=== PATIENT | male | born 1945 | race Caucasian/White ===

== ENCOUNTER 2018-01-07 15:17 | Inpatient (IN) ==
[2018-01-08 15:42] VITALS: BP 116/91
== END 2018-01-08 17:30 | disposition home or self-care (01) | DRG 312 ==
LOC: N.ED 15:17 → N.EDINP 16:55 → N.TELEN 17:29
PROVIDERS: ADMIT Family Medicine; ATTEND Family Medicine

== ENCOUNTER 2019-08-06 20:42 | Inpatient (IN) ==
[2019-08-06] MEDS ORDERED: PANTOPRAZOLE 40 MG VIAL IV STA (21:02)
[2019-08-06] MEDS ORDERED: SODIUM CHLORIDE 0.9% 500 ML IV STA (21:02)
[2019-08-06] MEDS ORDERED: ONDANSETRON 4 MG/2 ML VIAL IV STA (21:02)
[2019-08-06 21:43] LABS: Basophils % 0.1 % (0.0-0.8); Eosinophils # 0.1 10*3/uL (0.0-0.87); Eosinophils % 1.5 % (0.00-10.9); Hematocrit 31.4 VOL% (42.0-52.0); Hemoglobin 10.4 GM/DL (14.0-18.0); Immature Granulocytes % 0.5 %; Immature Granulocytes Absolute 0.04 #; Lymphocytes # 1.6 10*3/uL (1.4-4.0); Lymphocytes % 20.2 % (21.2-54.2); Mean Corpuscular HGB Conc 33.1 GM/DL (32-36); Mean Corpuscular Volume 87.7 FL (87-102); Mean Platelet Volume 9.1 FL (9.6-12.0); Neutrophils % 66.7 % (38.7-73.9); Platelet Count 164 T/CUMM (130-400); Red Blood Count 3.58 MC/CUMM (3.8-5.5); Red Cell Distribution Width 12.7 % (9.3-17.3); White Blood Count 7.9 T/CUMM (4-12)
[2019-08-06 21:55] LABS: INR 1.1; PT Patient Result 11.8 SECS (9.6-12.2)
[2019-08-06 21:59] LABS: Albumin 2.7 G/DL (3.4-5.0); Bilirubin,Total 0.6 MG/DL (0.2-1.0); Calcium 8.1 MG/DL (8.5-10.1); Osmolality,Calculated 290.4 MOS/KG (273-304); Total Protein 5.5 G/DL (6.4-8.3)
[2019-08-06] MEDS ORDERED: ACETAMINOPHEN 325 MG TABLET PO PRN (22:42)
[2019-08-06] MEDS ORDERED: ONDANSETRON 4 MG/2 ML VIAL IV PRN (22:42)
[2019-08-06] MEDS: SODIUM CHLORIDE 0.9% 1,000 ML IV SCH (22:45)
[2019-08-06 23:22] LABS: Basophils % 0.1 % (0.0-0.8); Eosinophils # 0.1 10*3/uL (0.0-0.87); Eosinophils % 0.9 % (0.00-10.9); Hematocrit 31.2 VOL% (42.0-52.0); Hemoglobin 10.2 GM/DL (14.0-18.0); Immature Granulocytes % 0.4 %; Immature Granulocytes Absolute 0.03 #; Lymphocytes # 1.5 10*3/uL (1.4-4.0); Lymphocytes % 18.6 % (21.2-54.2); Mean Corpuscular HGB Conc 32.7 GM/DL (32-36); Mean Corpuscular Volume 87.6 FL (87-102); Mean Platelet Volume 9.1 FL (9.6-12.0); Monocytes % 7.8 % (1.7-12.7); Neutrophils % 72.2 % (38.7-73.9); Platelet Count 159 T/CUMM (130-400); Red Blood Count 3.56 MC/CUMM (3.8-5.5); Red Cell Distribution Width 12.8 % (9.3-17.3); White Blood Count 7.8 T/CUMM (4-12)
[2019-08-07 06:55] LABS: Albumin 2.8 G/DL (3.4-5.0); Bilirubin,Total 0.6 MG/DL (0.2-1.0); Calcium 8.4 MG/DL (8.5-10.1); Risk Ratio 2.4; Total Protein 5.8 G/DL (6.4-8.3); VLDL CHOLESTEROL 30.2 MG/DL
[2019-08-07] MEDS: SODIUM CHLORIDE 0.9% 1,000 ML IV SCH ×3 (07:53→23:00)
[2019-08-07 07:54] LABS: Hematocrit 30.8 VOL% (42.0-52.0); Hemoglobin 10.1 GM/DL (14.0-18.0)
[2019-08-07 08:02] LABS: PT Patient Result 11.3 SECS (9.6-12.2); Partial Thromboplastin Time 23.8 SECS (20.8-36.0)
[2019-08-07] MEDS: valACYclovir 500 MG TABLET PO SCH (08:12)
[2019-08-07] MEDS: FLECAINIDE 50 MG TABLET PO SCH (08:12)
[2019-08-07] MEDS: DOCUSATE SODIUM 100 MG CAPSULE PO SCH ×2 (08:12→20:17)
[2019-08-07] MEDS: FOLIC ACID 1 MG TABLET PO SCH (08:12)
[2019-08-07 08:13] LABS: Troponin I < 0.015 NG/ML (0.00-0.045)
[2019-08-07] MEDS: PANTOPRAZOLE 40 MG VIAL IV SCH ×2 (08:13→20:17)
[2019-08-07] MEDS ORDERED: PANTOPRAZOLE 40 MG VIAL IV SCH (09:00)
[2019-08-07 11:25] LABS: Troponin I < 0.015 NG/ML (0.00-0.045)
[2019-08-07] MEDS: ASPIRIN EC 81 MG TABLET PO SCH (12:36)
[2019-08-07] MEDS: ENOXAPARIN 40 MG/0.4 ML SYRINGE SUBCUT SCH (12:36)
[2019-08-07 13:24] LABS: Hematocrit 30.2 VOL% (42.0-52.0); Hemoglobin 9.8 GM/DL (14.0-18.0)
[2019-08-07 13:52] LABS: Troponin I < 0.015 NG/ML (0.00-0.045)
[2019-08-07] MEDS: ROSUVASTATIN 20 MG TABLET PO SCH (19:22)
[2019-08-07] MEDS: CHOLECALCIFEROL 1,000 UNIT TABLET PO SCH (19:22)
[2019-08-07 20:05] LABS: Hematocrit 28.1 VOL% (42.0-52.0); Hemoglobin 9.2 GM/DL (14.0-18.0)
[2019-08-08] MEDS: SODIUM CHLORIDE 0.9% 1,000 ML IV SCH ×4 (00:06→17:05)
[2019-08-08 01:27] LABS: Hematocrit 27.4 VOL% (42.0-52.0); Hemoglobin 8.7 GM/DL (14.0-18.0)
[2019-08-08] MEDS: FOLIC ACID 1 MG TABLET PO SCH (08:58)
[2019-08-08] MEDS: DOCUSATE SODIUM 100 MG CAPSULE PO SCH ×2 (08:58→21:51)
[2019-08-08] MEDS: ASPIRIN EC 81 MG TABLET PO SCH (08:58)
[2019-08-08] MEDS: valACYclovir 500 MG TABLET PO SCH (08:58)
[2019-08-08] MEDS: FLECAINIDE 50 MG TABLET PO SCH (08:58)
[2019-08-08] MEDS: PANTOPRAZOLE 40 MG VIAL IV SCH ×2 (08:59→21:51)
[2019-08-08] MEDS: ENOXAPARIN 40 MG/0.4 ML SYRINGE SUBCUT SCH (09:00)
[2019-08-08] MEDS: ROSUVASTATIN 20 MG TABLET PO SCH (20:16)
[2019-08-08] MEDS: CHOLECALCIFEROL 1,000 UNIT TABLET PO SCH (20:16)
[2019-08-08] MEDS: MORPHINE 4 MG/1 ML VIAL IV PRN (21:59)
[2019-08-09] MEDS: SODIUM CHLORIDE 0.9% 1,000 ML IV SCH ×3 (02:35→21:38)
[2019-08-09 06:20] LABS: Basophils % 0.2 % (0.0-0.8); Eosinophils # 0.2 10*3/uL (0.0-0.87); Eosinophils % 4.8 % (0.00-10.9); Hematocrit 26.7 VOL% (42.0-52.0); Hemoglobin 8.7 GM/DL (14.0-18.0); Immature Granulocytes % 0.4 %; Immature Granulocytes Absolute 0.02 #; Lymphocytes # 1.2 10*3/uL (1.4-4.0); Lymphocytes % 25.4 % (21.2-54.2); Mean Corpuscular HGB Conc 32.6 GM/DL (32-36); Mean Corpuscular Volume 89.3 FL (87-102); Mean Platelet Volume 8.8 FL (9.6-12.0); Monocytes % 10.1 % (1.7-12.7); Neutrophils % 59.1 % (38.7-73.9); Platelet Count 142 T/CUMM (130-400); Red Blood Count 2.99 MC/CUMM (3.8-5.5); White Blood Count 4.8 T/CUMM (4-12)
[2019-08-09 06:57] LABS: Osmolality,Calculated 285.8 MOS/KG (273-304)
[2019-08-09] MEDS: ENOXAPARIN 40 MG/0.4 ML SYRINGE SUBCUT SCH (08:50)
[2019-08-09] MEDS: PANTOPRAZOLE 40 MG VIAL IV SCH ×2 (08:50→21:02)
[2019-08-09] MEDS: DOCUSATE SODIUM 100 MG CAPSULE PO SCH ×2 (08:52→21:02)
[2019-08-09] MEDS: ASPIRIN EC 81 MG TABLET PO SCH (08:52)
[2019-08-09] MEDS: POTASSIUM CHLORIDE 20 MEQ TABLET PO PRN ×3 (08:52→13:55)
[2019-08-09] MEDS: FOLIC ACID 1 MG TABLET PO SCH (08:53)
[2019-08-09] MEDS: valACYclovir 500 MG TABLET PO SCH (08:53)
[2019-08-09] MEDS: VALSARTAN/HCTZ 160-12.5 MG TABLET PO SCH (08:53)
[2019-08-09] MEDS: FLECAINIDE 50 MG TABLET PO SCH (09:02)
[2019-08-09] MEDS: ROSUVASTATIN 20 MG TABLET PO SCH (21:01)
[2019-08-09] MEDS: CHOLECALCIFEROL 1,000 UNIT TABLET PO SCH (21:02)
[2019-08-09] MEDS: MORPHINE 4 MG/1 ML VIAL IV PRN (21:02)
[2019-08-10 05:36] LABS: Basophils % 0.2 % (0.0-0.8); Eosinophils # 0.2 10*3/uL (0.0-0.87); Eosinophils % 5.5 % (0.00-10.9); Hematocrit 27.9 VOL% (42.0-52.0); Hemoglobin 9.1 GM/DL (14.0-18.0); Immature Granulocytes % 0.5 %; Immature Granulocytes Absolute 0.02 #; Lymphocytes # 1.4 10*3/uL (1.4-4.0); Lymphocytes % 31.3 % (21.2-54.2); Mean Corpuscular HGB Conc 32.6 GM/DL (32-36); Mean Corpuscular Volume 89.1 FL (87-102); Mean Platelet Volume 9.4 FL (9.6-12.0); Monocytes % 10.1 % (1.7-12.7); Neutrophils % 52.4 % (38.7-73.9); Platelet Count 171 T/CUMM (130-400); Red Blood Count 3.13 MC/CUMM (3.8-5.5); Red Cell Distribution Width 13.5 % (9.3-17.3); White Blood Count 4.4 T/CUMM (4-12)
[2019-08-10 05:52] LABS: Calcium 8.3 MG/DL (8.5-10.1); Osmolality,Calculated 284.8 MOS/KG (273-304)
[2019-08-10] MEDS: FLECAINIDE 50 MG TABLET PO SCH (10:17)
[2019-08-10] MEDS: DOCUSATE SODIUM 100 MG CAPSULE PO SCH ×2 (10:17→20:32)
[2019-08-10] MEDS: FOLIC ACID 1 MG TABLET PO SCH (10:17)
[2019-08-10] MEDS: valACYclovir 500 MG TABLET PO SCH (10:17)
[2019-08-10] MEDS: VALSARTAN/HCTZ 160-12.5 MG TABLET PO SCH (10:17)
[2019-08-10] MEDS: ASPIRIN EC 81 MG TABLET PO SCH (10:17)
[2019-08-10] MEDS: PANTOPRAZOLE 40 MG VIAL IV SCH ×2 (10:17→20:30)
[2019-08-10] MEDS: SODIUM CHLORIDE 0.9% 1,000 ML IV SCH ×2 (10:18→23:54)
[2019-08-10] MEDS: ENOXAPARIN 40 MG/0.4 ML SYRINGE SUBCUT SCH (10:18)
[2019-08-10] MEDS: POTASSIUM CHLORIDE 20 MEQ TABLET PO PRN ×2 (13:26→16:13)
[2019-08-10] MEDS: CHOLECALCIFEROL 1,000 UNIT TABLET PO SCH (18:28)
[2019-08-10] MEDS: ROSUVASTATIN 20 MG TABLET PO SCH (18:28)
[2019-08-11 05:41] LABS: Calcium 8.4 MG/DL (8.5-10.1)
[2019-08-11 08:38] LABS: Basophils % 0.4 % (0.0-0.8); Eosinophils # 0.3 10*3/uL (0.0-0.87); Hematocrit 29.5 VOL% (42.0-52.0); Hemoglobin 9.6 GM/DL (14.0-18.0); Immature Granulocytes % 0.6 %; Immature Granulocytes Absolute 0.03 #; Lymphocytes # 1.6 10*3/uL (1.4-4.0); Lymphocytes % 29.5 % (21.2-54.2); Mean Corpuscular HGB Conc 32.5 GM/DL (32-36); Mean Corpuscular Volume 89.7 FL (87-102); Mean Platelet Volume 8.7 FL (9.6-12.0); Monocytes % 10.5 % (1.7-12.7); Platelet Count 159 T/CUMM (130-400); Red Blood Count 3.29 MC/CUMM (3.8-5.5); Red Cell Distribution Width 13.9 % (9.3-17.3); White Blood Count 5.5 T/CUMM (4-12)
[2019-08-11] MEDS ORDERED: LIDOCAINE 2% 5 ML VIAL ONE (09:00)
[2019-08-11] MEDS ORDERED: LACTATED RINGERS 1,000 ML IV SCH (09:00)
[2019-08-11] MEDS ORDERED: propofoL 200 MG/20 ML VIAL IV ONE (09:00)
[2019-08-11] MEDS: PANTOPRAZOLE 40 MG VIAL IV SCH (10:01)
[2019-08-11] MEDS: FLECAINIDE 50 MG TABLET PO SCH (14:01)
[2019-08-11] MEDS: valACYclovir 500 MG TABLET PO SCH (14:01)
[2019-08-11] MEDS: DOCUSATE SODIUM 100 MG CAPSULE PO SCH (14:02)
[2019-08-11] MEDS: VALSARTAN/HCTZ 160-12.5 MG TABLET PO SCH (14:02)
[2019-08-11] MEDS: FOLIC ACID 1 MG TABLET PO SCH (14:02)
[2019-08-11] MEDS: ASPIRIN EC 81 MG TABLET PO SCH (14:02)
[2019-08-11 14:23] VITALS: BP 133/79
[2019-08-11] MEDS: SODIUM CHLORIDE 0.9% 1,000 ML IV SCH (16:12)
== END 2019-08-11 15:45 | disposition home or self-care (01) | DRG 378 ==
LOC: EDUNIT# → N.ED 20:42 → N.EDINP 22:10 → N.ICU 22:47 → N.TELEN 08-08 13:26
PROVIDERS: ADMIT Family Medicine; ATTEND Family Medicine

== ENCOUNTER 2020-03-12 11:36 | Inpatient (IN) ==
[2020-03-12 12:24] LABS: Basophils % 0.4 % (0.0-0.8); Eosinophils % 0.4 % (0.00-10.9); Hematocrit 40.6 VOL% (42.0-52.0); Hemoglobin 13.6 GM/DL (14.0-18.0); Immature Granulocytes % 4.5 %; Immature Granulocytes Absolute 0.44 #; Lymphocytes # 1.2 10*3/uL (1.4-4.0); Lymphocytes % 12.4 % (21.2-54.2); Mean Corpuscular HGB Conc 33.5 GM/DL (32-36); Mean Corpuscular Volume 90.4 FL (87-102); Mean Platelet Volume 9.1 FL (9.6-12.0); Neutrophils % 75.3 % (38.7-73.9); Platelet Count 119 T/CUMM (130-400); Red Blood Count 4.49 MC/CUMM (3.8-5.5); Red Cell Distribution Width 15.1 % (9.3-17.3); White Blood Count 9.7 T/CUMM (4-12)
[2020-03-12 12:37] LABS: Albumin 2.7 G/DL (3.4-5.0); Bilirubin,Total 0.4 MG/DL (0.2-1.0); Calcium 8.9 MG/DL (8.5-10.1); Osmolality,Calculated 282.7 MOS/KG (273-304); PT Patient Result 10.4 SECS (9.8-11.9); Partial Thromboplastin Time 23.7 SECS (23.9-33.8); Total Protein 6.1 G/DL (6.4-8.3)
[2020-03-12 12:44] LABS: Platelet Estimate Adequate
[2020-03-12 12:45] LABS: Anisocytosis 1+
[2020-03-12] MEDS ORDERED: ONDANSETRON 4 MG/2 ML VIAL IV PRN (14:16)
[2020-03-12] MEDS ORDERED: ACETAMINOPHEN 325 MG TABLET PO PRN (14:16)
[2020-03-12] MEDS: SODIUM CHLORIDE 0.45% 1,000 ML IV SCH ×2 (14:40→21:43)
[2020-03-12] MEDS: TAMSULOSIN 0.4 MG CAPSULE PO SCH (17:27)
[2020-03-12] MEDS: APIXABAN 5 MG TABLET PO SCH (21:44)
[2020-03-12] MEDS: ROSUVASTATIN 20 MG TABLET PO SCH (21:44)
[2020-03-12] MEDS: FLECAINIDE 50 MG TABLET PO SCH (21:44)
[2020-03-12] MEDS: levETIRAcetam 500 MG TABLET PO SCH (21:44)
[2020-03-12] MEDS: cefTRIAXone 1,000 MG in SYRINGE 1 EACH IV SCH (21:44)
[2020-03-12] MEDS: valACYclovir 500 MG TABLET PO SCH (21:44)
[2020-03-13 05:23] LABS: Basophils % 0.2 % (0.0-0.8); Eosinophils # 0.1 10*3/uL (0.0-0.87); Eosinophils % 0.7 % (0.00-10.9); Hematocrit 40.1 VOL% (42.0-52.0); Hemoglobin 13.4 GM/DL (14.0-18.0); Immature Granulocytes % 2.4 %; Immature Granulocytes Absolute 0.24 #; Mean Corpuscular HGB Conc 33.4 GM/DL (32-36); Mean Corpuscular Volume 88.9 FL (87-102); Mean Platelet Volume 9.1 FL (9.6-12.0); Neutrophils % 66.7 % (38.7-73.9); Platelet Count 95 T/CUMM (130-400); Red Blood Count 4.51 MC/CUMM (3.8-5.5); Red Cell Distribution Width 15.1 % (9.3-17.3)
[2020-03-13 06:23] LABS: Microcytosis Slight
[2020-03-13 06:24] LABS: Platelet Estimate Adequate
[2020-03-13] MEDS: SODIUM CHLORIDE 0.45% 1,000 ML IV SCH ×2 (06:31→13:54)
[2020-03-13] MEDS: CHOLECALCIFEROL 1,000 UNIT TABLET PO SCH (09:48)
[2020-03-13] MEDS: FLECAINIDE 50 MG TABLET PO SCH ×2 (09:49→20:19)
[2020-03-13] MEDS: DEXAMETHASONE 4 MG TABLET PO SCH (09:49)
[2020-03-13] MEDS: levETIRAcetam 500 MG TABLET PO SCH ×2 (09:50→20:19)
[2020-03-13] MEDS: FOLIC ACID 1 MG TABLET PO SCH (09:50)
[2020-03-13] MEDS: APIXABAN 5 MG TABLET PO SCH ×2 (09:50→20:19)
[2020-03-13] MEDS: ASPIRIN EC 81 MG TABLET PO SCH (09:50)
[2020-03-13] MEDS: valACYclovir 500 MG TABLET PO SCH ×2 (09:50→20:18)
[2020-03-13] MEDS: PANTOPRAZOLE 40 MG TABLET PO SCH (09:50)
[2020-03-13] MEDS: TAMSULOSIN 0.4 MG CAPSULE PO SCH (16:14)
[2020-03-13] MEDS: cefTRIAXone 1,000 MG in SYRINGE 1 EACH IV SCH (20:16)
[2020-03-13] MEDS: ROSUVASTATIN 20 MG TABLET PO SCH (20:20)
[2020-03-14] MEDS: levETIRAcetam 500 MG TABLET PO SCH ×2 (10:23→21:28)
[2020-03-14] MEDS: APIXABAN 5 MG TABLET PO SCH ×2 (10:23→21:28)
[2020-03-14] MEDS: valACYclovir 500 MG TABLET PO SCH ×2 (10:23→21:28)
[2020-03-14] MEDS: ASPIRIN EC 81 MG TABLET PO SCH (10:23)
[2020-03-14] MEDS: CHOLECALCIFEROL 1,000 UNIT TABLET PO SCH (10:23)
[2020-03-14] MEDS: FLECAINIDE 50 MG TABLET PO SCH (10:24)
[2020-03-14] MEDS: PANTOPRAZOLE 40 MG TABLET PO SCH (10:24)
[2020-03-14] MEDS: FOLIC ACID 1 MG TABLET PO SCH (10:24)
[2020-03-14] MEDS: DEXAMETHASONE 4 MG TABLET PO SCH (10:24)
[2020-03-14] MEDS: TAMSULOSIN 0.4 MG CAPSULE PO SCH (16:58)
[2020-03-14] MEDS: cefTRIAXone 1,000 MG in SYRINGE 1 EACH IV SCH (21:27)
[2020-03-14] MEDS: ROSUVASTATIN 20 MG TABLET PO SCH (21:28)
[2020-03-15] MEDS: FLECAINIDE 50 MG TABLET PO SCH ×2 (00:30→08:07)
[2020-03-15 05:24] VITALS: BP 134/82
[2020-03-15] MEDS: FOLIC ACID 1 MG TABLET PO SCH (08:07)
[2020-03-15] MEDS: levETIRAcetam 500 MG TABLET PO SCH (08:07)
[2020-03-15] MEDS: valACYclovir 500 MG TABLET PO SCH (08:07)
[2020-03-15] MEDS: ASPIRIN EC 81 MG TABLET PO SCH (08:07)
[2020-03-15] MEDS: CHOLECALCIFEROL 1,000 UNIT TABLET PO SCH (08:07)
[2020-03-15] MEDS: DEXAMETHASONE 4 MG TABLET PO SCH (08:07)
[2020-03-15] MEDS: APIXABAN 5 MG TABLET PO SCH (08:08)
[2020-03-15] MEDS: PANTOPRAZOLE 40 MG TABLET PO SCH (08:08)
== END 2020-03-15 09:24 | disposition home or self-care (01) | DRG 176 ==
LOC: N.ED 11:36 → N.EDINP 14:16 → N.TELEN 16:40
PROVIDERS: ADMIT Family Medicine; ATTEND Family Medicine